=== PATIENT | male | born 1980 | race Asian ===

== ENCOUNTER 2018-07-20 08:59 | Observation (INO) | payer BC ==
--- NOTE | 2018-07-20 09:07 | PDOC ---
History of Present Illness - General Stated Complaint: CHEST PAIN Time Seen by Provider: 07/20/18 09:02 - History of Present Illness Initial Comments: 07/20/18 09:37 The patient is a 38 year old male with a history of HLD, Pre-diabetes who presents for evaluation of shortness of breath and palpitations. The patient reports that he has been experiencing a sensation of a racing heart rate with associated shortness of breath, chest tightness and lightheadedness since earlier this morning. He notes that he was at work and had a syncopal episode while sitting prompting his presentation to the ED for further evaluation. He denies similar symptoms in the past and otherwise denies fevers, chills, nausea , vomiting, abdominal pain, numbness, tingling, weakness, leg swelling, or changes with urination or bowel movements. Past History - Past Medical History Allergies/Adverse Reactions: Allergies Allergy/AdvReac Type Severity Reaction Status Date / Time No Known Allergies Allergy Verified 07/20/18 09:10 Home Medications: Ambulatory Orders NK [No Known Home Medication] 07/20/18 Review of Systems - Review of Systems Comments:: 07/20/18 09:42 Constitutional: No fevers, chills, fatigue, malaise HEENT: No Rhinorrhea, nasal congestion, visual changes Cardiovascular: Chest tightness, syncope, palpitations, lightheadedness Respiratory: SOB. No Cough, Hemoptysis, Gastrointestinal: No Abdominal pain, Nausea, Vomiting, Constipation, Diarrhea, Melena Genitourinary: No Dysuria, Frequency, Urgency, Hesitancy, Hematuria, Flank pain Musculoskeletal: No Myalgia, arthralgia Skin: No rashes, itching, bruising, pallor Neurologic: No Headache, Dizziness, Numbness, Weakness, or Tingling Psychiatric: No Hallucinations. No SI or HI *Physical Exam - Physical Exam Comments: 07/20/18 09:42 General Appearance: Nourished. No Apparent Distress HEENT: No Pharyngeal Erythema, Tonsillar Exudate, Tonsillar Erythema Neck: No Cervical Lymphadenopathy Respiratory/Chest: Lungs Clear, Normal Breath Sounds. No Crackles, Rales, Rhonchi, Wheezing Cardiovascular: Regular Rhythm, Tachycardic Rate. No Murmur, Gallops, Rubs Gastrointestinal/Abdominal: Normal Bowel Sounds, Soft. No Guarding, Rebound, Tenderness Musculoskeletal: No CVA Tenderness Extremity: Normal Capillary Refill Integumentary: Normal Color, Dry, Warm Neurologic: Fully Oriented, Alert, Normal Mood/Affect, Normal Response, Heart Score/ECG Review #1 ECG reviewed & interpreted by me at: 09:10 07/20/18 09:[address] depressions in leads v4-V5 HR 132 #2 ECG reviewed & interpreted by me at: 09:15 07/20/18 09:51 [address] depression in leads v4-V6 T wave inversions in leads III and aVF HR130 #3 ECG reviewed & interpreted by me at: 09:25 07/20/18 09:52 Sup[address] depression in leads v4-V6 T wave inversions in leads III and aVF HR 131 #4 ECG reviewed & interpreted by me at: 09:30 General ECG Interpretation: Sinus Rhythm, Normal Rate, Normal Intervals, No acute ischemic changes ED Treatment Course - LABORATORY CBC & Chemistry Diagram: 07/20/18 09:07 07/20/18 10:10 Medical Decision Making - Critical Care Time Total Critical Care Time (minutes): 35 Critical Care Statement: The care of this patient involved high complexity decision making to prevent further life threatening deterioration of the patient 's condition and/or to evaluate & treat vital organ system(s) failure or risk of failure. - Medical Decision Making 07/20/18 09:44 The patient is a 38 year old male with a history of HLD, Pre-diabetes who presents for evaluation of shortness of breath and palpitations. Differential includes but is not limited to: SVT, Arrythmia, ACS, PE, Infectious, Metabolic Derangement. The patient's initial EKG was notable for SVT at a rate of [address] depressions in leads V4-V6. Vagal maneuvers were attempted without success. 6mg of Adenosine was used and the patient successfully converted to normal sinus rhythm on repeat ekg with improvement in his symptoms. We will obtain a cbc, cmp, troponin, chest plain film, tsh, chest CTA to evaluate further. The patient will likely require admission for further work up and management given his initial EKG findings and new onset SVT. We will continue to monitor and reassess while here in the ED. 07/20/18 15:01 CBC, cmp, troponin are unremarkable. Chest CTA is unremarkable as read by our radiologist. We discussed the case with the admitting team who accepted the patient for admission. We discussed the case with cardiology who will come evaluate the patient. We will continue to monitor and reassess while here in the ED. *DC/Admit/Observation/Transfer Diagnosis at time of Disposition: SVT (supraventricular tachycardia) Syncope Qualifiers: Syncope type: unspecified Qualified Code(s): R55 - Syncope and collapse - Discharge Dispostion Condition at time of disposition: Stable Decision to Admit order: Yes - Referrals - Patient Instructions - Post Discharge Activity
[2018-07-20 09:12] VITALS: BMI 31.0
[2018-07-20] MEDS ORDERED: ADENOSINE 6 MG/2 ML VIAL IVPUSH ONE ×2 (09:25→09:33)
--- NOTE | 2018-07-20 09:41 | PDOC ---
Attending Attestation - Resident Resident Name: Morris Ventura - ED Attending Attestation I have performed the following: I have examined & evaluated the patient, The case was reviewed & discussed with the resident, I agree w/resident's findings & plan, Exceptions are as noted - HPI HPI: 07/20/18 09:35 38-year-old male with past medical history of prediabetes, diet-controlled hypercholesterolemia brought in by EMS for palpitations. The patient reported yesterday he was feeling in his usual state health. He woke up this morning feeling lightheaded and dizzy with chest tightness and shortness of breath. Patient went to work and was with his colleagues when he had a brief syncopal episode. This was witnessed by his colleagues. No head trauma. Patient is brought in by EMS. Patient was seen by us immediately noted to have SVT. No recent illnesses, fevers, chills, cough, vomiting, diarrhea, dysuria. As of note, the patient has been endorsing 6 weeks of under her left ribs pain. The patient has been worked up as an outpatient including lipase and LFTs which were unremarkable. Had a CAT scan of the abdomen pelvis without contrast that demonstrated no acute findings. Patient is no prior history of DVTs or pulmonary embolism. - Physicial Exam PE: 07/20/18 09:41 GENERAL: Awake, alert, and fully oriented, in no acute distress HEAD: No signs of trauma EYES: EOMI, sclera anicteric, conjunctiva clear ENT: Auricles normal inspection, hearing grossly normal, nares patent,Moist mucosa NECK: Normal ROM, supple, LUNGS: Breath sounds equal, clear to auscultation bilaterally. No wheezes, and no crackles HEART: Regular rate and rhythm, normal S1 and S2, no murmurs, rubs or gallops. + palpitations EXTREMITIES: Normal range of motion, no edema. No clubbing or cyanosis. No cords, erythema, or tenderness NEUROLOGICAL: Cranial nerves II through XII grossly intact. Normal speech, normal gait SKIN: Warm, Dry, normal turgor, no rashes or lesions noted. - Critical Care Time Total Critical Care Time: 35 Critical Care Statement: The care of this patient involved high complexity decision making to prevent further life threatening deterioration of the patient 's condition and/or to evaluate & treat vital organ system(s) failure or risk of failure. - Medical Decision Making 07/20/18 09:42 Vital Signs Temp Pulse Resp BP Pulse Ox 98.6 F 97 H 24 H 144/87 97 07/20/18 09:10 07/20/18 09:27 07/20/18 09:27 07/20/18 09:27 07/20/18 09:27 Patient presents with new onset SVT. On SVT, the EKG is notable for some millimeter ST depression in aVF, V5 and V6. No ST elevations noted. Vagal maneuvers were attempted with no success. 6 noted as of IV adenosine pushed with successful conversion to normal sinus rhythm. Patient had relief of symptoms. Given the new ST changes with supraventricular tachycardia, we'll but the patient to the hospital for further evaluation. It is unclear what this left rib pain for one half months is. We'll need to rule out pulmonary lives in. CAT scan the chest. 07/20/18 10:41 CBC, BMP 07/20/18 09:07 07/20/18 10:10 CMP Sodium 139 mmol/L (136-145) 07/20/18 10:10 Potassium 4.5 mmol/L (3.5-5.1) 07/20/18 10:10 Chloride 106 mmol/L (98-107) 07/20/18 10:10 Carbon Dioxide 23 mmol/L (21-32) 07/20/18 10:10 Anion Gap 10 MMOL/L (8-16) 07/20/18 10:10 BUN 21 mg/dL (7-18) H 07/20/18 10:10 Creatinine 1.3 mg/dL (0.55-1.3) 07/20/18 10:10 Creat Clearance w eGFR > 60 (>60) 07/20/18 10:10 Random Glucose 118 mg/dL (74-106) H 07/20/18 10:10 Calcium 8.6 mg/dL (8.5-10.1) 07/20/18 10:10 Total Bilirubin 0.2 mg/dL (0.2-1) 07/20/18 10:10 AST 55 U/L (15-37) H 07/20/18 10:10 ALT 72 U/L (13-61) H 07/20/18 10:10 Alkaline Phosphatase 72 U/L (45-117) 07/20/18 10:10 Creatine Kinase 171 IU/L (26-308) 07/20/18 10:10 Troponin I 0.02 ng/ml (0.00-0.05) 07/20/18 10:10 Total Protein 7.6 g/dl (6.4-8.2) 07/20/18 10:10 Albumin 4.2 g/dl (3.4-5.0) 07/20/18 10:10 TSH 1.10 uIU/ml (0.358-3.74) 07/20/18 10:10 CT chest reviewed. No PE. Will admit patient to the hospital. 07/20/18 13:37 Heart Score/ECG Review #1 ECG reviewed & interpreted by me at: 09:10 07/20/18 09:43 SVT 132, submm STD avF, V5-V6, no cortes, TWI II, III, avF, QTC 453 msec #2 ECG reviewed & interpreted by me at: 09:30 07/20/18 09:44 NSR 100, no std/cortes, TWI III, , QTC 425 msec, normal axis, normal intervals
[2018-07-20 09:49] LABS: BASO % 0.6 % (0-2.0); EOS % 3.7 % (0-4.5); HEMATOCRIT 42.7 % (35.4-49); HEMOGLOBIN 14.5 GM/dL (11.7-16.9); LYMPH % 29.6 % (8-40); MCH 30.9 pg (25.7-33.7); MCHC 33.9 g/dl (32.0-35.9); MEAN PLT VOLUME 8.1 fl (7.5-11.1); NEUT % 55.1 % (42.8-82.8); PLATELET COUNT 222 K/MM3 (134-434); RDW 14.1 % (11.9-15.9); WHITE BLOOD COUNT 6.3 K/mm3 (4.0-10.0)
[2018-07-20] MEDS ORDERED: SODIUM CHLORIDE 1,000 ML IV STA (09:49)
[2018-07-20 10:33] LABS: ALBUMIN 4.2 g/dl (3.4-5.0); ALK PHOS 72 U/L (45-117); ANION GAP 10 MMOL/L (8-16); BILIRUBIN,TOTAL 0.2 mg/dL (0.2-1); BLOOD UREA NITROGEN 21 mg/dL (7-18); CALCIUM 8.6 mg/dL (8.5-10.1); CHLORIDE 106 mmol/L (98-107); CO2 23 mmol/L (21-32); CREATININE 1.3 mg/dL (0.55-1.3); GLUCOSE,RANDOM 118 mg/dL (74-106); POTASSIUM 4.5 mmol/L (3.5-5.1); SGOT/AST 55 U/L (15-37); SGPT/ALT 72 U/L (13-61); SODIUM 139 mmol/L (136-145); TOT PROT 7.6 g/dl (6.4-8.2)
[2018-07-20 10:42] LABS: INR 1.13 (0.83-1.09); PROTHROMBIN TIME (PATIENT) 13.4 SEC (9.7-13.0)
[2018-07-20 10:45] LABS: ACTIVATED PTT 30.3 SECONDS (25.2-36.5)
--- NOTE | 2018-07-20 14:54 | HP ---
CHIEF COMPLAINT: Palpitations, lightheadedness PCP: Reinaldo Marcos [place] HISTORY OF PRESENT ILLNESS: Pt is a 38 y/o gentleman with a past medical history of prediabetes and HLD who presented to [facility] this AM c/o palpitations and lightheadedness. Pt endorses that he began to experience his symptoms upon waking this morning. Pt states that he was getting dressed and heading to his work ([employer]). Before pt went to his vehicle, he experienced sudden palpitations and felt lightheaded; pt sat down for a little while and then went to his car. Pt endorses that for the entire car ride which is approximately 1 hour, he was sweating and felt unwell. Pt subsequently went to his work and was observed by his co-workers to look unwell and act oddly. Pt then had a syncopal episode and EMS was activated. Pt currently denies any chest pain or shortness of breath. States this is the first time this has happened to him. Denies illicit drug use, heavy caffeine use, recent illness, or precipitating factors. ER course was notable for: (1) 6 mg adenosine (2) EKG--> SVT 133 BPM (3) CTA Chest- No P.E Recent Travel: denies PAST MEDICAL HISTORY: HLD prediabetes PAST SURGICAL HISTORY: R shoulder surgery, Appendix removal, Tendon repair dorsum R foot. Social History: Smoking: denies Alcohol: Social drinker Drugs: denies Family History: Mother HTN, Father past away chicken pox Allergies denies No Known Allergies Allergy (Verified 07/20/18 09:10) HOME MEDICATIONS: Home Medications Medication Instructions Recorded NK [No Known Home Medication] 07/20/18 REVIEW OF SYSTEMS CONSTITUTIONAL: Absent: fever, chills, diaphoresis, generalized weakness, malaise, loss of appetite, weight change HEENT: Absent: rhinorrhea, nasal congestion, throat pain, throat swelling, difficulty swallowing, mouth swelling, ear pain, eye pain, visual changes CARDIOVASCULAR: PRESENT: chest pain, syncope, palpitations, irregular heart rate, lightheadedness RESPIRATORY: Absent: cough, shortness of breath, dyspnea with exertion, orthopnea, wheezing, stridor, hemoptysis GASTROINTESTINAL: Absent: abdominal pain, abdominal distension, nausea, vomiting, diarrhea, constipation, melena, hematochezia GENITOURINARY: Absent: dysuria, frequency, urgency, hesitancy, hematuria, flank pain, genital pain MUSCULOSKELETAL: PRESENT: Rib pain left side. SKIN: Absent: rash, itching, pallor HEMATOLOGIC/IMMUNOLOGIC: Absent: easy bleeding, easy bruising, lymphadenopathy, frequent infections ENDOCRINE: Absent: unexplained weight gain, unexplained weight loss, heat intolerance, cold intolerance NEUROLOGIC: Absent: headache, focal weakness or paresthesias, dizziness, unsteady gait, seizure, mental status changes, bladder or bowel incontinence PSYCHIATRIC: Absent: anxiety, depression, suicidal or homicidal ideation, hallucinations. PHYSICAL EXAMINATION Vital Signs - 24 hr 07/20/18 07/20/18 07/20/18 09:10 09:25 09:27 Temperature 98.6 F Pulse Rate 135 H Pulse Rate [ 133 H 97 H Apical] Respiratory 26 H 26 H 24 H Rate Blood Pressure 144/99 Blood Pressure 135/94 144/87 [Left Arm] O2 Sat by Pulse 98 98 97 Oximetry (%) 07/20/18 07/20/18 07/20/18 09:44 09:48 09:57 Temperature Pulse Rate Pulse Rate [ 95 H 91 H Apical] Respiratory 16 16 Rate Blood Pressure Blood Pressure 144/94 134/90 [Left Arm] O2 Sat by Pulse 98 98 98 Oximetry (%) 07/20/18 07/20/18 07/20/18 10:30 13:10 14:20 Temperature 97.8 F Pulse Rate Pulse Rate [ 99 H 71 69 Apical] Respiratory 20 Rate Blood Pressure Blood Pressure 139/88 135/71 [Left Arm] O2 Sat by Pulse 99 97 Oximetry (%) GENERAL: AAOx3, pleasant HEAD: NC/AT EYES: EOMI PERRLA EARS, NOSE, THROAT: MMM NECK: Supple LUNGS: CTA B/L No rales rhonchi or wheezing HEART: NSR, No MRG S1S2 RRR ABDOMEN: NTND No HSM MUSCULOSKELETAL: Full ROM throughout UPPER EXTREMITIES: No CCE LOWER EXTREMITIES: No CCE NEUROLOGICAL: Cranial nerves II-XII intact. Normal speech. Normal gait. PSYCHIATRIC: Cooperative. Good eye contact. Appropriate mood and affect. SKIN: Warm, dry, normal turgor, no rashes or lesions noted, normal capillary refill. Laboratory Results - last 24 hr 07/20/18 07/20/18 07/20/18 09:07 09:31 10:10 WBC 6.3 RBC 4.70 Hgb 14.5 Hct 42.7 MCV 91.0 MCH 30.9 MCHC 33.9 RDW 14.1 Plt Count 222 MPV 8.1 Absolute Neuts (auto) 3.5 Neutrophils % 55.1 Lymphocytes % 29.6 Monocytes % 11.0 H Eosinophils % 3.7 Basophils % 0.6 Nucleated RBC % 0 PT with INR 13.40 H INR 1.13 H PTT (Actin FS) 30.3 Sodium 139 Potassium 4.5 Chloride 106 Carbon Dioxide 23 Anion Gap 10 BUN 21 H Creatinine 1.3 Creat Clearance w eGFR > 60 Random Glucose 118 H Calcium 8.6 Total Bilirubin 0.2 AST 55 H ALT 72 H Alkaline Phosphatase 72 Creatine Kinase 171 Creatine Kinase Index 0.5 CK-MB (CK-2) < 1.0 Troponin I 0.02 Total Protein 7.6 Albumin 4.2 TSH 1.10 ASSESSMENT/PLAN: Pt is a 38 y/o gentleman with a past medical history of prediabetes and HLD who presented to [facility] this AM c/o palpitations and lightheadedness. #SVT EKG--> Supraventricular tachycardia , Vent rate 132 bpm, first occurrence -Echo pending -Troponin <0.02, repeat pending - Cardiology consult- Dr Wagoner on board - Lipid panel -HA1C -TSH WNL #FEN No Fluids Monitor electrolytes Diabetic Diabetic # DVT ppx: Hep SQ TID Dispo: Tele Visit type - Emergency Visit Emergency Visit: Yes ED Registration Date: 07/20/18 Care time: The patient presented to the Emergency Department on the above date and was hospitalized for further evaluation of their emergent condition. - New Patient This patient is new to me today: Yes Date on this admission: 07/20/18 - Critical Care Critical Care patient: No
--- NOTE | 2018-07-20 15:50 | CON.CARD ---
Consult Consult Specialty:: Cardiology Referred by:: Nadia Reason for Consultation:: SVT - History of Present Illness Chief Complaint: syncope History of Present Illness: 38M h/o diet controlled HLD, prediabetes p/w palpitations, lightheadedness, syncope. Started feeling symptoms around 6:30 AM while getting ready for work at [employer], started getting palps and lightheaded suddenly. Sat down felt a little better, started driving to work which took over an hour. [place] sweaty and lighteaded during the drive, when he go to work he tried to call for help. One of his colleagues found him on the floor per his report and the next thing he remembers was getting to the ER. Noted to be in SVT, EKGs reviewed, timed around 9:30 AM. Converted to sinus after adenosine. [place] better after. Also had complained of chest tightness during event, CTA chest neg for PE. - History Source History Provided By: Patient Limitations to Obtaining History: No Limitations - Alcohol/Substance Use Hx Alcohol Use: No - Smoking History Smoking history: Former smoker Have you smoked in the past 12 months: No If you are a former smoker, when did you quit?: 2014 Home Medications - Allergies Allergies/Adverse Reactions: Allergies Allergy/AdvReac Type Severity Reaction Status Date / Time No Known Allergies Allergy Verified 07/20/18 09:10 - Home Medications Home Medications: Ambulatory Orders NK [No Known Home Medication] 07/20/18 Family Disease History - Family Disease History Family History: Unremarkable Review of Systems - Review of Systems Constitutional: reports: Weakness Eyes: reports: No Symptoms HENT: reports: No Symptoms Neck: reports: No Symptoms Cardiovascular: reports: Palpitations Respiratory: reports: No Symptoms Gastrointestinal: reports: No Symptoms Genitourinary: reports: No Symptoms Musculoskeletal: reports: No Symptoms Integumentary: reports: No Symptoms Neurological: reports: Syncope Endocrine: reports: No Symptoms Hematology/Lymphatic: reports: No Symptoms Psychiatric: reports: No Symptoms Vital Signs: Vital Signs Temperature 97.8 F 07/20/18 14:20 Pulse Rate 69 07/20/18 14:20 Respiratory Rate 20 07/20/18 10:30 Blood Pressure 135/71 07/20/18 14:20 O2 Sat by Pulse Oximetry (%) 97 07/20/18 14:20 Constitutional: Yes: Well Nourished, No Distress, Calm Eyes: Yes: Conjunctiva Clear, EOM Intact HENT: Yes: Atraumatic, Normocephalic Neck: Yes: Supple, Trachea Midline Respiratory: Yes: Regular, CTA Bilaterally Gastrointestinal: Yes: Normal Bowel Sounds, Soft Cardiovascular: Yes: Regular Rate and Rhythm JVD: No Carotid Bruit: No PMI: Non-Displaced Heart Sounds: Yes: S1, S2 Musculoskeletal: No: Back Pain Extremities: No: Cold, Cyanosis Edema: No Peripheral Pulses WNL: Yes Peripheral Pulses: 2+ Left Doralis Pedis, 2+ Right Dorsalis Pedis Integumentary: No: Jaundice Neurological: Yes: Alert, Oriented Psychiatric: Yes: Alert, Oriented - Other Data Labs, Other Data: CBC, BMP 07/20/18 09:07 07/20/18 10:10 INR, PTT INR 1.13 (0.83-1.09) H 07/20/18 09:31 Troponin, BNP 07/20/18 10:10 Troponin I 0.02 Troponin, BNP 07/20/18 10:10 Troponin I 0.02 Assessment/Plan EKG: SVT 133 bpm, sinus rhythm nl CA interval after adenosine CXR: no acute process CTA chest: no PE SVT, syncope, chest tightness - symptoms lasting 3 hours, 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 if benign findings, no further inpatient workup - monitoring on tele HLD, prediabetes - diet controlled - advised diet and lifestyle modifications
--- NOTE | 2018-07-20 17:11 | EKG ---
Test Reason : Blood Pressure : / mmHG Vent. Rate : 131 BPM Atrial Rate : 153 BPM P-R Int : 000 ms QRS Dur : 088 ms QT Int : 306 ms P-R-T Axes : 000 034 018 degrees QTc Int : 451 ms SUPRAVENTRICULAR TACHYCARDIA NONSPECIFIC ST ABNORMALITY ABNORMAL ECG WHEN COMPARED WITH ECG OF 20-JUL-2018 09:16, SINUS RHYTHM HAS REPLACED JUNCTIONAL RHYTHM Confirmed by SATINDER CARPENTER MD ([id number]) on 07/20/2018 5:11:21 PM Referred By: Confirmed By:SATINDER CARPENTER MD
--- NOTE | 2018-07-20 17:11 | EKG ---
Test Reason : Blood Pressure : / mmHG Vent. Rate : 100 BPM Atrial Rate : 100 BPM P-R Int : 168 ms QRS Dur : 084 ms QT Int : 330 ms P-R-T Axes : 048 036 016 degrees QTc Int : 425 ms NORMAL SINUS RHYTHM NORMAL ECG WHEN COMPARED WITH ECG OF 20-JUL-2018 09:24, NON-SPECIFIC CHANGE IN ST SEGMENT IN INFERIOR LEADS Confirmed by SATINDER CARPENTER MD ([id number]) on 07/20/2018 5:11:11 PM Referred By: Confirmed By:SATINDER CARPENTER MD
--- NOTE | 2018-07-20 19:05 | PN ---
Teaching Attending Note Name of Resident: Jett Marquez ATTENDING PHYSICIAN STATEMENT I saw and evaluated the patient. I reviewed the resident's note and discussed the case with the resident. I agree with the resident's findings and plan as documented. SUBJECTIVE: 38 yrs old man H/O Hypercholesterolemia and borderline DM present after an episode of palliation that lasted > 3 hrs , patient experienced dizziness and syncope BIB ems to Ed w/u EKG shows SVT HR 140s responded to adenosine converted to NSR remained asymptomatic OBJECTIVE: Vital Signs 07/20/18 07/20/18 07/20/18 13:10 14:20 18:53 Temperature 97.8 F Pulse Rate [ 71 69 76 Apical] Respiratory 20 Rate Blood Pressure 135/71 136/75 [Left Arm] O2 Sat by Pulse 97 97 Oximetry (%) Young man comfortable denies any comaplints HEENT: Mm moist no anemia NCK No JVD No Bruit CHEST: CTA B/L CVS; S1S2 R no mg/r ABD; No dustention non teder Bs + EXT: No ramon afeet, no calf tenderness Pulses + 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 HELPER: AOX3 non focal LABS: Reviewed CBC, CMP are normal Trop normal CXR normal EKG: Ist SVT at 140s 2nd NSR at 99 CXR: Normal CT Chest; No PE ASSESSMENT AND PLAN:38 yrs old man H/O Hypercholesterolemia and borderline DM present after an episode of palliation that lasted > 3 hrs , patient experienced dizziness and syncope BIB ems to Ed w/u EKG shows SVT HR 140s responded to adenosine converted to NSR, already evaluted by cardiology now converted to NSR Observe overnight Serial Trop X2 and ECHO add Lipitor 20 mg last LDL 139 last month If asymptomatic remains and in NSR Dc home in am with out patient EP at [facility](Patient preference)
[2018-07-20] MEDS: HEPARIN NA (PORCINE) 5,000 UNITS/ML 1ML VIAL SQ SCH (21:33)
[2018-07-21] MEDS: HEPARIN NA (PORCINE) 5,000 UNITS/ML 1ML VIAL SQ SCH ×2 (05:58→17:22)
[2018-07-21 07:29] LABS: HEMOGLOBIN 13.7 GM/dL (11.7-16.9); MCH 29.8 pg (25.7-33.7); MCHC 32.5 g/dl (32.0-35.9); MEAN CELL VOLUME 91.6 fl (80-96); PLATELET COUNT 191 K/MM3 (134-434); RBC 4.58 M/mm3 (4.00-5.60); RDW 14.1 % (11.9-15.9); WHITE BLOOD COUNT 5.6 K/mm3 (4.0-10.0)
--- NOTE | 2018-07-21 07:45 | EKG ---
Test Reason : Blood Pressure : / mmHG Vent. Rate : 130 BPM Atrial Rate : 129 BPM P-R Int : 000 ms QRS Dur : 082 ms QT Int : 310 ms P-R-T Axes : 000 045 017 degrees QTc Int : 456 ms POOR DATA QUALITY, INTERPRETATION MAY BE ADVERSELY AFFECTED SUPRAVENTRICULAR TACHYCARDIA NONSPECIFIC ST ABNORMALITY ABNORMAL ECG Confirmed by CAROL MAGAÑA MD ([id number]) on 07/21/2018 7:45:21 AM Referred By: Confirmed By:CAROL MAGAÑA MD
[2018-07-21 08:31] LABS: INR 1.18 (0.83-1.09); PROTHROMBIN TIME (PATIENT) 13.9 SEC (9.7-13.0)
[2018-07-21 08:33] LABS: ANION GAP 10 MMOL/L (8-16); BLOOD UREA NITROGEN 17 mg/dL (7-18); CALCIUM 8.4 mg/dL (8.5-10.1); CHLORIDE 108 mmol/L (98-107); CO2 23 mmol/L (21-32); GLUCOSE,RANDOM 87 mg/dL (74-106); MAGNESIUM 2.4 mg/dL (1.8-2.4); PHOSPHOROUS 3.5 mg/dL (2.5-4.9); POTASSIUM 4.3 mmol/L (3.5-5.1); SODIUM 141 mmol/L (136-145)
[2018-07-21 08:34] LABS: ACTIVATED PTT 31.4 SECONDS (25.2-36.5)
--- NOTE | 2018-07-21 10:27 | PN ---
Progress Note (short form) - Note Progress Note: s: no cp sob palps dizzy o: Vital Signs Period Temp Pulse Resp BP Sys/Collazo Pulse Ox Last 24 Hr 97.3 F-97.8 F 56-99 18-20 110-139/60-88 97-99 Constitutional: Yes: Well Nourished, No Distress, Calm Eyes: Yes: Conjunctiva Clear Neck: Yes: Supple, Trachea Midline Respiratory: Yes: Regular, CTA Bilaterally Gastrointestinal: Yes: Normal Bowel Sounds, Soft Cardiovascular: Yes: Regular Rate and Rhythm JVD: No Heart Sounds: Yes: S1, S2 Extremities: No: Cold, Cyanosis Edema: No Peripheral Pulses: 2+ Left Doralis Pedis, 2+ Right Dorsalis Pedis Integumentary: No: Jaundice Neurological: Yes: Alert, Oriented Current Medications Generic Name Dose Route Start Last Admin Trade Name Freq PRN Reason Stop Dose Admin Heparin Sodium (Porcine) 5,000 unit 07/20/18 22:00 07/21/18 05:58 Heparin - SQ 5,000 unit TID JACINDA Administration CBC, BMP 07/21/18 06:15 07/21/18 06:15 Assessment/Plan EKG: SVT 133 bpm, sinus rhythm nl AK interval after adenosine CXR: no acute process tele: sr/sb CTA chest: no PE SVT, syncope, chest tightness - symptoms lasting 3 hours, 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 if benign findings, no further inpatient workup and ok for dc HLD, prediabetes - diet controlled - advised diet and lifestyle modifications
--- NOTE | 2018-07-21 10:28 | ECHO ---
Name: KALEN JULIAN Exam:Adult Echocardiogram Study Date: 07/21/2018 07:25 AM Age: 38 yrs Reason For Study: SVT FIRST TIME Height: 69 in Weight: 210 lb BSA: 2.1 m2 MMode/2D Measurements & Calculations IVSd: 1.1 cm Ao root diam: 3.9 cm LVIDd: 5.3 cm LA dimension: 4.4 cm LVIDs: 3.3 cm ACS: 2.2 cm LVPWd: 0.92 cm IVSs: 1.4 cm LVPWs: 1.4 cm EDV(Teich): 134.6 ml ESV(Teich): 45.2 ml Doppler Measurements & Calculations MV E max alonso: 77.0 cm/sec Ao V2 max: 100.4 cm/sec MV A max alonso: 56.3 cm/sec Ao max P.0 mmHg MV E/A: 1.4 Ao V2 mean: 71.4 cm/sec Ao mean P.2 mmHg Ao V2 VTI: 21.6 cm MR max alonso: 394.1 cm/sec TR max alonso: 184.8 cm/sec MR max P.8 mmHg TR max P.8 mmHg PI end-d alonso: 98.4 cm/sec Med Peak E' Alonso: 7.4 cm/sec Med E/e': 10.4 Lat Peak E' Alonso: 7.8 cm/sec Lat E/e': 9.9 Left Ventricle Left ventricular systolic function is normal. Ejection Fraction = 50-55%. Right Ventricle The right ventricle is normal in size and function. Atria The left atrium is mildly dilated. Mitral Valve The mitral valve is normal in structure and function. There is no mitral valve stenosis. There is mil d mitral regurgitation. Tricuspid Valve The tricuspid valve is normal in structure and function. There is mild tricuspid regurgitation. Aortic Valve The aortic valve opens well. No hemodynamically significant valvular aortic stenosis. No aortic regur gitation is present. Pulmonic Valve The pulmonic valve is not well seen, but is grossly normal. There is no pulmonic valvular stenosis. M ild pulmonic valvular regurgitation. Great Vessels Mild aortic root dilatation. Pericardium/Pleura There is no pericardial effusion. Interpretation Summary Left ventricular systolic function is normal. Ejection Fraction = 50-55%. The right ventricle is normal in size and function. The left atrium is mildly dilated. There is mild mitral regurgitation. There is mild tricuspid regurgitation. Mild pulmonic valvular regurgitation. Mild aortic root dilatation. There is no pericardial effusion. MD Alvarado *Rhina 07/21/2018 10:27 AM
[2018-07-21] MEDS ORDERED: ASPIRIN 81 MG CHEWABLE TABLETS PO SCH (10:45)
--- NOTE | 2018-07-21 13:50 | EKG ---
Test Reason : Blood Pressure : / mmHG Vent. Rate : 132 BPM Atrial Rate : 144 BPM P-R Int : 000 ms QRS Dur : 080 ms QT Int : 306 ms P-R-T Axes : 000 038 017 degrees QTc Int : 453 ms SUPRAVENTRICULAR TACHYCARDIA NONSPECIFIC ST ABNORMALITY ABNORMAL ECG NO PREVIOUS ECGS AVAILABLE Confirmed by CAROL MAGAÑA MD ([id number]) on 07/21/2018 1:50:44 PM Referred By: Confirmed By:CAROL MAGAÑA MD
--- NOTE | 2018-07-21 15:39 | PN ---
Teaching Attending Note ATTENDING PHYSICIAN STATEMENT I saw and evaluated the patient. I reviewed the resident's note and discussed the case with the resident. I agree with the resident's findings and plan as documented. SUBJECTIVE:syncope. He is a 38 Y/O M NEY on CPAP.W no significant PMH, P/W an episode of syncope during the episodes he was found to be in SVT with rate in 130s, dynamic EKG changes, and made troponin. the SVT broke with adenosine and the dynamic EKG changes resolved (TWI in the inferior leads). on TTE he has denies any Etoh abuse, no drug abuse, no caffeine use. no FHX of sudden , is not veyr active at baseline. OBJECTIVE:in no distress CVS:S1S2(distance sounds) CTAB Abd;BS+ NT/ND Obese 2+ DP pulses equal radial pulses equal Last Vital Signs Temp Pulse Resp BP Pulse Ox 97.3 F L 60 18 125/75 98 07/21/18 05:40 07/21/18 08:14 07/21/18 08:14 07/21/18 08:14 07/20/18 23:07 labs reviewed: MG/K WNL, EKG: TWI in the inf leads which normalizes as HR improves. ASSESSMENT AND PLAN: syncope with SVT,dynamic ischemic changes and troponinemia, evaluated by cardiology and plan for F/U with EP as O/P. At this time will C/W cardiac monitoring as he gets bradycardic during sleep ( can be NEY as he was not on CPAP last night). Will get SPECT on Tuesday and will further discuss DC planning. Will C/W asa 81 mg po daily start on atorvastatin 80 mg po qhs NEY: will c/w cpap DVT PPX; lovenox sq : cardiac
[2018-07-21 18:10] VITALS: BP 118/77; PULSE 104; TEMP 97.9
--- NOTE | 2018-07-21 19:07 | DS ---
Physical Exam: SUBJECTIVE: Patient seen and examined at bedside this morning. Denies chest pain or shortness of breath. OBJECTIVE: Vital Signs Period Temp Pulse Resp BP Sys/Collazo Pulse Ox Last 24 Hr 97.3 F-98.2 F 56-104 18-20 110-126/60-77 98-98 PHYSICAL EXAM GENERAL: AAOx3, NAD HEAD: NC/AT EYES:EOMI PERRLA ENT: MMM NECK: Supple LUNGS: CTA B/L No wheezing rhonchi or rales HEART: RRR No MRG S1S2 ABDOMEN: Soft NDNT BS+. Tenderness left anterior flank 2/2 floating rib? EXTREMITIES:No CCE, well perfused NEUROLOGICAL: Cranial nerves II through XII grossly intact. Normal speech, gait not observed. PSYCH: Normal mood, normal affect. SKIN: Warm well perfused no rashes or lesions LABS Laboratory Results - last 24 hr 07/21/18 07/21/18 07/21/18 05:30 06:15 06:15 WBC 5.6 RBC 4.58 Hgb 13.7 Hct 42.0 MCV 91.6 MCH 29.8 MCHC 32.5 RDW 14.1 Plt Count 191 MPV 8.0 PT with INR 13.90 H INR 1.18 H PTT (Actin FS) 31.4 Sodium Potassium Chloride Carbon Dioxide Anion Gap BUN Creatinine Creat Clearance w eGFR Random Glucose Calcium Phosphorus Magnesium Troponin I Cancelled 07/21/18 06:15 WBC RBC Hgb Hct MCV MCH MCHC RDW Plt Count MPV PT with INR INR PTT (Actin FS) Sodium 141 Potassium 4.3 Chloride 108 H Carbon Dioxide 23 Anion Gap 10 BUN 17 Creatinine 1.0 Creat Clearance w eGFR > 60 Random Glucose 87 Calcium 8.4 L Phosphorus 3.5 Magnesium 2.4 Troponin I 0.06 H HOSPITAL COURSE: Date of Admission:07/20/18 Pt presented to [facility] ED on 07/20/18 for shortness of breath and palpitations. EKG was performed in the emergency room which revealed a rate of 132 BPM and Supraventricular Tachycardia. CTA Chest was negative for pulmonary embolism. While in the emergency department, pt was given Adenosine 6 mg. Medication broke abnormal heart rhythm. First troponin was 0.02. Second troponin was 0.09. Third troponin was 0.06. An echocardiogram was performed which revealed a LV systolic function to be normal, an ejection fraction of 50-55%, right ventricle normal in size and function, left atrium mildly dilated, mild mitral regurg, mild tricuspid regurg, mild pulmonic valvular regurgitation, mild aortic root dilation, no pericardial effusion. Pt was seen by Cardiology, Dr Ackerman, who advised against starting pt on a BB/CCB in light of pt's baseline sinus bradycardia. Date of Discharge: 07/21/18 Minutes to complete discharge: 35 Discharge Summary Reason For Visit: SYNCOPE; SUPRAVENTRICULAR TACHYCARDIA Current Active Problems SVT (supraventricular tachycardia) (Acute) Syncope (Acute) Condition: Improved - Instructions Diet, Activity, Other Instructions: You presented to [facility] ED on 07/20/18 for shortness of breath and palpitations. EKG was performed in the emergency room and you were found to be in an irregular heart rhythm called Supraventricular Tachycardia. While in the emergency department, you were given a medication called Adenosine 6 mg. This medication broke your abnormal heart rhythm. Troponin, a heart enzyme, was tested to see if it was elevated. Elevation of troponin indicates heart muscle damage. Your troponin was slightly elevated however this is most likely a result from the SVT, abnormal heart rythm. An echocardiogram was performed and the results of that test were provided to you along with your initial EKG. Cat Scan of your chest in the ED was negative for a pulmonary embolism. - Return to the Emergency Department if you experience chest pain, shortness of breath, nausea, or vomiting. -Please follow up with your primary care physician tomorrow 07/22/18. -A referral to a cathode ray tube assembler has been provided with your discharge papers. Referrals: Brad Ackerman MD [Staff Physician] - Disposition: HOME - Home Medications Comprehensive Discharge Medication List: Ambulatory Orders NK [No Known Home Medication] 07/20/18 This patient is new to me today: No Emergency Visit: Yes ED Registration Date: 07/20/18 Care time: The patient presented to the Emergency Department on the above date and was hospitalized for further evaluation of their emergent condition. Critical Care patient: No - Discharge Referral Referred to [facility] No
== END 2018-07-21 20:22 | disposition home or self-care (01) ==
LOC: JER 08:59 → JERBED 14:06 → J4W 19:55
PROVIDERS: ADMIT Internal Medicine; ATTEND Internal Medicine
PROC: 3E033GC Introduction of Other Therapeutic Substance into Peripheral Vein, Percutaneous Approach (ICD-10-PCS; principal; 2018-07-20)
DX: I47.1 Supraventricular tachycardia (principal); R55 Syncope and collapse; R07.89 Other chest pain; E78.5 Hyperlipidemia, unspecified; R73.03 Prediabetes; Z87.891 Personal history of nicotine dependence
CPT/HCPCS: 36415; 71045-TC-FY; 71275-TC; 80048; 80053; 82550; 82553; 83735; 84100; 84443; 84484; 85025; 85027; 85610; 85730; 93005; 93010; 93306-TC; 99285-25; G0378; J1644; J7030